=== PATIENT | female | born 1930 | race African-American/Black ===

== ENCOUNTER 2018-08-01 21:12 | Observation (INO) | payer OTHER ==
--- OUTSIDE RECORDS SUMMARY | 2018-08-01 21:14 | XMS REPORT | Continuity of Care Document ---
:1930 Author Organization Interface Problems Problem Status Onset Classification Date Comments Source Date Reported N64.4 - Active [facility] Medications Medication Details Route Status Patient Ordering Order Source Instructions Provider Date Allergies, Adverse Reactions, Alerts Substance Category Reaction Severity Reaction Status Date Comments Source type Reported penicillins Assertion Drug Active [facility] allergy 1 [facility] Women's Immunizations Immunization Date Given Site Status Last Updated Comments Source Results Order Results Value Reference Date Interpretation Comments Source Name Range Breast Breast - BREAST COMPLETE [facility]OMA US 12/22 - [facility] Complete Complete /2015 - [place] US [facility] US ULTRASOUND OF BOTH BREASTS: 12/23/2015 CLINICAL: N64.4 Mastodynia. Read by: Miguel Parkinson MD Dictated Date/time: 12/27/15 17:53 Electronically Signed by: Miguel Parkinson MD 12/27/15 17:53 FINAL REPORT No prior exams were available for comparison. Real-time ultrasound of both breasts was performed. The entire right and left breasts were evaluated including all four quadrants subareolar region, axilla, and axillary tail. There are no abnormal-appearing lymph nodes in both axilla. There is no complex cyst, suspicious mass, or abnormal echotexture. IMPRESSION: BENIGN There is no sonographic evidence of malignancy. A 1 year screening mammogram is recommended. Bilateral mammogram was done the same day. Please see separate report. Miguel Parkinson M.D. mt/:12/27/2015 17:53:27 Recharger: Allison Plunkett R.D.M.S, [facility] Women's Imaging This exam was dictated and interpreted by [id number] for [facility] Women' s Imaging. letter sent: Normal exam Ultrasound BI-RADS: 2 Benign Digital Digital - DIGITAL MAMMO DX HOMA MA 12/22 - [facility] Mammo DX Mammo DX /2015 - [place] Homa MA [place] MA BILATERAL DIGITAL DIAGNOSTIC MAMMOGRAM WITH CAD: 12/23/2015 CLINICAL: N64.4 Mastodynia. Read by: Miguel Parkinson MD Dictated Date/time: 12/23/15 11:18 Electronically Signed by: Miguel Parkinson MD 12/23/15 11:18 FINAL REPORT Additional History: Left breast pain x 3-4 months Current study was evaluated with a Computer Aided Detection (CAD) system. No prior exams were available for comparison. There are scattered fibroglandular densities in both breasts. There are benign scattered calcifications and densities in both breasts. No significant masses, calcifications, or other findings are seen in either breast. IMPRESSION: BENIGN There is no mammographic evidence of malignancy. A 1 year screening mammogram is recommended. There is also no sonographic evidence of malignancy (separate report). Given history of breast pain, clinical follow up and correlation are recommended. If breast pain continues to be a concern, MRI could be considered. Miguel Parkinson M.D. mt/:12/23/2015 11:18:25 Recharger: Merle Nolan [facility] Women's Imaging This exam was dictated and interpreted by [id number] for [facility] Women' s Imaging. letter sent: Normal exam Mammogram BI-RADS: 2 Benign Vital Signs Vital Sign Value Date Comments Source Encounters Location Location Encounter Encounter Reason Attending ADM AR Status Source Details Type Number For Provider Date Date Visit [facility] Outpt Diag [id number] Anali 12/22 12/23 [facility] Outpatient Services Donn [facility] Imaging - Women's [facility] Women's Procedures Procedure Code Date Perfomer Comments Source
--- OUTSIDE RECORDS SUMMARY | 2018-08-01 21:14 | XMS REPORT ---
:1930 [facility] Address [address] [place] [address] [address] [place] [address] Care Team Providers Name Role Phone UNKNOWN, REFFERING Primary Care Provider Unavailable NADEGE SALEH Unavailable Unavailable Problems This patient has no known problems. Allergies, Adverse Reactions, Alerts This patient has no known allergies or adverse reactions. Medications This patient has no known medications. Encounters Start End Encounter Admission Attending Care Care Encounter Date/Time Date/Time Type Type Clinicians Facility Department ID 2017-06-03 2017-06-03 Outpatient [facility] [id number] 19:44:00 19:44:00 NADEGE Results Test Description Test Time Test Comments Text Results Atomic Results Result Comments Lipid Profile 2017-06-03 20:58:00 Test Item Value Reference Range Comments Cholesterol (test code=CHOL) 193 mg/dL 0-200 Triglycerides (test code=TRIG) 61 mg/dL 9-200 HDL (test code=HDL) 100 mg/dL 50-60 Chol/HDL (test code=CHOLPHDL) 1.9 Ratio 0.0-4.4 LDL, Calculated (test 81 0-130 (NOTE)RISK OF HEART DISEASEPublished code=LDLC) by Filip[place] Heart AssociationAnalyte Optimal Boderline Increased RiskCHOL <200 200-239 >240TRIG <150 150-199 >200HDL Male: >60 <40HDL Female: >60 <50LDL <100 130-159 >160LDL NEAR OPTIMAL IS 100-129 VLDL (test code=VLDL) 12 mg/dL 5-40 LDL/HDL (test code=LDLPHDL) 1 CBC with [id number] 22:50:00 Test Item Value Reference Range Comments WBC (test code=WBC) 5.5 K/cumm 4.4-10.5 RBC (test code=RBC) 3.97 M/cumm 3.75-5.20 Hemoglobin (test code=HGB) 11.6 gm/dL 12.2-14.8 Hematocrit (test code=HCT) 38.1 % 36.5-44.4 MCV (test code=MCV) 96.1 fL 80-100 MCH (test code=MCH) 29.2 pg 27.0-32.5 MCHC (test code=MCHC) 30.3 g/dL 32.0-37.5 RDW (test code=RDW) 15.0 % 11.5-14.5 Platelet Count (test code=PLTCT) 272 K/cumm 140-440 MPV (test code=MPV) 10.5 fL Diff Method (test code=DIFFM) Auto Neutrophil (test code=NEUT) 48.7 % 36-70 Lymphocyte (test code=LYMPH) 34.5 % 12-44 Monocyte (test code=MONO) 6.7 % 0-11 Eosinophil (test code=EOS) 9.3 % 0-7 Basophil (test code=BASO) 0.7 % 0-2 Neutro Abs (test code=ANEUT) 2.7 K/cumm 1.6-7.4 Lymph Abs (test code=ALYMPH) 1.9 K/cumm 0.5-4.6 [place] Abs (test code=AMONO) 0.4 K/cumm 0.0-1.2 Eos Abs (test code=AEOS) 0.51 K/cumm 0.00-0.74 Baso Abs (test code=ABASO) 0.0 K/cumm 0.00-0.21 Lipid [id number] 22:31:00 Test Item Value Reference Range Comments Cholesterol (test 169 mg/dL 0-200 code=CHOL) Triglycerides (test 61 mg/dL 9-200 code=TRIG) HDL (test code=HDL) 87 mg/dL 50-60 Chol/HDL (test 1.9 Ratio 0.0-4.4 code=CHOLPHDL) LDL, Calculated (test 70 mg/dL 0-130 (NOTE)RISK OF HEART code=LDLC) DISEASEPublished by Filip[place] Heart AssociationAnalyte Optimal Boderline Increased RiskCHOL <200 200-239 >240TRIG <150 150-199 >200HDL Male: >60 <40HDL Female: >60 <50LDL <100 130-159 >160LDL NEAR OPTIMAL IS 100-129 VLDL (test code=VLDL) 12 mg/dL 5-40 LDL/HDL (test code=LDLPHDL) 1 Comprehensive Metabolic [id number] 22:31:00 Test Item Value Reference Range Comments Sodium (test code=NA) 141 mmol/L 135-145 Potassium (test code=K) 4.2 mmol/L 3.5-5.1 Chloride (test code=CL) 104 mmol/L 98-105 Carbon Dioxide (test 26 mmol/L 22-29 code=CO2) Glucose (test code=GLU) 87 mg/dL 70-115 Blood Urea Nitrogen (test 17 mg/dL 8-23 code=BUN) Creatinine (test 1.0 mg/dL 0.5-0.9 code=CREAT) Calcium (test code=CA) 9.2 mg/dL 8.3-10.5 Prot Total (test code=TP) 8.0 g/dL 6.4-8.3 Albumin (test code=ALB) 3.8 g/dL 3.5-5.2 A/G Ratio (test 0.9 Ratio code=AGRATIO) Globulin (test code=GLOB) 4.2 2.9-3.1 Bili Total (test 0.4 mg/dL 0.1-0.9 code=TBIL) Alk Phos (test 88 U/L 35-104 code=APHOS) AST (test code=AST) 29 U/L 1-32 ALT (test code=ALT) 21 U/L 1-33 BUN/Creatinine Ratio 17.0 (test code=BCRATIO) Anion Gap (test 11 mmol/L 7-16 code=AGAP) Estimated GFR (test 56 mL/min/1.73m2 eGFR (estimated Glomerular code=GFR) Filtration Rate) is an estimated value,calculated from the patient's serum creatinine using the MDRD equation.It is NOT the patient's actual GFR. The eGFR provides a more clinicallyuseful measure of kidney disease than serum creatinine alone.This calculation takes sex and race into account, if the informationis provided. If the race is not provided, and the patient isAfrican-Filipino, multiply by 1.212. If sex is not provided, and thepatient is female, multiply by 0.742. Results for patients <18 years ofage have not been validated by the MDRD study and should be interpretedwith caution.eGFR Result Interpretation:eGFR > or=60 is in the Normal RangeeGFR < 60 may mean kidney diseaseeGFR < 15 may mean kidney failureRanges recommended by the National Kidney Foundation,http://nkdep.nih .gov
[2018-08-01 21:57] LABS: Absolute Lymphocytes (CBC) 2.6 K/uL (0.7-4.9); Absolute Monocytes 0.8 K/uL (0.1-1.3); Absolute Neutrophil 2.8 K/uL (1.8-8.0); Basophils % 0.8 % (0-1.3); Eosinophils % 8.8 % (0-4.4); Hematocrit 36.9 % (36.0-45.0); Lymphocytes % 38.3 % (15.3-44.8); MPV 9.1 fL (7.6-11.3); Monocytes % 11.4 % (3.3-12.3); RBC Red Blood Cell Count 4.04 M/uL (3.86-4.86)
[2018-08-01 21:59] LABS: Protime INR 0.98
[2018-08-01 23:24] LABS: Albumin 3.1 g/dL (3.4-5.0); Bilirubin Direct 0.1 mg/dL (0-0.2); Bilirubin Total 0.3 mg/dL (0.2-1.0); Magnesium 1.9 mg/dL (1.8-2.4); Potassium 3.8 mmol/L (3.5-5.1); Protein, Total 8.8 g/dL (6.4-8.2); Troponin (Emerg Dept Use Only) 0.08 ng/mL (0.0-0.045)
--- NOTE | 2018-08-02 00:29 | ER ---
Nurse's Notes [facility] Name: Esthela Araiza Age: 88 yrs Sex: Female : 1930 Arrival Date: 08/01/2018 Time: 21:15 Bed 3 Private MD: Diagnosis: Chest pain, unspecified Presentation: 08/01 21:15 Presenting complaint: EMS states: Pt reports chest pain off and on for about 1 week. ed1 Transition of care: patient was not received from another setting of care. Onset of symptoms was July 25, 2018. Risk Assessment: Do you want to hurt yourself or someone else? Patient reports no desire to harm self or others. Initial Sepsis Screen: Does the patient meet any 2 criteria? No. Patient's initial sepsis screen is negative. Does the patient have a suspected source of infection? No. Patient's initial sepsis screen is negative. Care prior to arrival: Medication(s) given: ASA, 81 mg, x 4, Nitroglycerin, 0.4 mg SL x 1, IV initiated. 20 GA, in the right forearm. 21:15 Method Of Arrival: EMS: [facility] ed1 21:15 Acuity: LEXA 3 ed1 Triage Assessment: 21:17 General: Appears in no apparent distress. Behavior is calm, cooperative. Pain: Denies ed1 pain. EENT: No signs and/or symptoms were reported regarding the EENT system. Neuro: Level of Consciousness is awake, alert, obeys commands, Oriented to person, place, time, situation. 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 Respiratory: Airway is patent Respiratory effort is even, unlabored, Respiratory pattern is regular, symmetrical, Breath sounds are clear bilaterally. Denies cough, shortness of breath. GI: Patient currently denies diarrhea, nausea, vomiting. : No signs and/or symptoms were reported regarding the genitourinary system. Derm: Skin is intact, is healthy with good turgor, Skin is dry, Skin is normal, Skin temperature is warm. Musculoskeletal: Circulation, motion, and sensation intact. Historical: - Allergies: 21:17 PENICILLINS; ed1 - PMHx: 21:17 Hypertension; ed1 - PSHx: 21:17 Knee surgery; ed1 - Immunization history:: Adult Immunizations up to date, Flu vaccine is up to date. - Social history:: Smoking status: Patient/guardian denies using tobacco, Patient/guardian denies using alcohol, street drugs, The patient lives with family. - Ebola Screening: : Patient negative for fever greater than or equal to 101.5 degrees Fahrenheit, and additional compatible Ebola Virus Disease symptoms Patient denies exposure to infectious person Patient denies travel to an Ebola-affected area in the 21 days before illness onset No symptoms or risks identified at this time. - Family history:: not pertinent. Screenin:20 Abuse screen: Denies threats or abuse. Denies injuries from another. Nutritional ed1 screening: No deficits noted. Tuberculosis screening: No symptoms or risk factors identified. Fall Risk No fall in past 12 months (0 pts). No secondary diagnosis (0 pts). IV access (20 points). Ambulatory Aid- None/Bed Rest/Nurse Assist (0 pts). Gait- Normal/Bed Rest/Wheelchair (0 pts) Mental Status- Oriented to own ability (0 pts). Total Carr Fall Scale indicates No Risk (0-24 pts). Assessment: 21:20 General: See triage assessment. Pain: Denies pain. ed1 21:20 Pain: denies pain at this time Pain began about 1 week ago. ed1 22:19 Reassessment: Patient appears in no apparent distress at this time. Patient and/or ed1 family updated on plan of care and expected duration. Pain level reassessed. Patient is alert, oriented x 3, equal unlabored respirations, skin warm/dry/pink. Patient denies pain at this time. 23:22 Reassessment: Patient appears in no apparent distress at this time. No changes from ed1 previously documented assessment. Patient and/or family updated on plan of care and expected duration. Pain level reassessed. Patient is alert, oriented x 3, equal unlabored respirations, skin warm/dry/pink. Patient denies pain at this time. 08/02 00:24 Reassessment: Patient appears in no apparent distress at this time. No changes from ed1 previously documented assessment. Patient and/or family updated on plan of care and expected duration. Pain level reassessed. Patient is alert, oriented x 3, equal unlabored respirations, skin warm/dry/pink. Patient denies pain at this time. 01:37 Reassessment: Patient appears in no apparent distress at this time. No changes from ed1 previously documented assessment. Patient and/or family updated on plan of care and expected duration. Pain level reassessed. Patient is alert, oriented x 3, equal unlabored respirations, skin warm/dry/pink. Pt takes Lorazapam 0.5mg at home and was asking if she could have a dose here to help her sleep Patient denies pain at this time. Vital Signs: 08/01 21:17 BP 168 / 108; Pulse 85; Resp 17; Pulse Ox 98% on R/A; Weight 57.15 kg; Height 5 ft. 1 ed1 in. (154.94 cm); Pain 0/10; 22:19 BP 170 / 96; Pulse 78; Resp 17; Pulse Ox 99% on R/A; Pain 0/10; ed1 23:22 BP 162 / 91; Pulse 72; Resp 16; Pulse Ox 97% on R/A; Pain 0/10; ed1 08/02 00:24 BP 152 / 80; Pulse 73; Resp 16; Pulse Ox 95% on R/A; Pain 0/10; ed1 01:37 BP 183 / 86; Pulse 90; Resp 22; Temp 97.9(O); Pulse Ox 100% on R/A; Pain 0/10; ed1 02:20 BP 171 / 90; Pulse 75; Resp 14; Pulse Ox 100% on R/A; Pain 0/10; ed1 08/01 21:17 Body Mass Index 23.81 (57.15 kg, 154.94 cm) ed1 ED Course: 08/01 21:15 Patient arrived in ED. ed1 21:15 Helder Augustine MD is Attending Physician. ma2 21:16 Triage completed. ed1 21:17 Arm band placed on. ed1 21:20 Patient has correct armband on for positive identification. Placed in gown. Bed in low ed1 position. Call light in reach. Side rails up X2. monitoring analyst on. Pulse ox on. NIBP on. Warm blanket given. 21:20 Maintain EMS IV. Dressing intact. Good blood return noted. Site clean \T\ dry. Gauge \T\ ed 1 site: 20g right FA. Patient maintains SpO2 saturation greater than 95% on room air. 21:25 Aguilar, Shantal, RN is Primary Nurse. ed1 21:39 XRAY Chest (1 view) In Process Unspecified. EDMS 08/02 00:25 Attending Physician role handed off by Helder Augustine MD tw4 00:25 Mitchel Issa MD is Attending Physician. tw4 00:28 Helder Montague MD is Hospitalizing Provider. tw4 01:38 Awaiting bed assignment. ed1 02:20 No provider procedures requiring assistance completed. Patient admitted, IV remains in ed1 place. intact, No redness/swelling at site. Administered Medications: No medications were administered Outcome: 00:28 Decision to Hospitalize by Provider. tw4 03:22 Admitted to Tele accompanied by tech, family with patient, via wheelchair, room 428, ed1 with chart, Report called to WANDY Pérez 03:22 Condition: stable 03:22 Discharge instructions given to patient, Instructed on the need for admit, Demonstrated understanding of instructions. 03:23 Patient left the ED. ed1 Signatures: Dispatcher [employer] Shantal Mireles, RN RN ed1 Helder Augustine MD MD [facility] Mitchel Issa MD MD tw4
--- NOTE | 2018-08-02 00:29 | EDPHYS ---
Physician Documentation [facility] Name: Esthela Araiza Age: 88 yrs Sex: Female : 1930 Arrival Date: 08/01/2018 Time: 21:15 Bed 3 Private MD: ED Physician Mitchel Issa HPI: 08/01 21:58 This 88 yrs old Black Female presents to ER via EMS with complaints of Chest Pain. ma2 21:58 The patient or guardian reports chest pain that is located primarily in the substernal ma2 area. Onset: gradually, 1 hour(s) ago. The chest pain is described as burning. Severity of pain: At its worst the pain was moderate in the emergency department the pain is unchanged. The patient has not experienced similar symptoms in the past. Historical: - Allergies: 21:17 PENICILLINS; ed1 - PMHx: 21:17 Hypertension; ed1 - PSHx: 21:17 Knee surgery; ed1 - Immunization history:: Adult Immunizations up to date, Flu vaccine is up to date. - Social history:: Smoking status: Patient/guardian denies using tobacco, Patient/guardian denies using alcohol, street drugs, The patient lives with family. - Ebola Screening: : Patient negative for fever greater than or equal to 101.5 degrees Fahrenheit, and additional compatible Ebola Virus Disease symptoms Patient denies exposure to infectious person Patient denies travel to an Ebola-affected area in the 21 days before illness onset No symptoms or risks identified at this time. - Family history:: not pertinent. ROS: 21:58 Constitutional: Negative for fever, chills, and weight loss. ma2 21:58 Respiratory: Negative for shortness of breath, cough, wheezing, and pleuritic chest pain, Abdomen/GI: Negative for abdominal pain, nausea, diarrhea, and constipation, Neuro: Negative for headache, weakness, numbness, tingling, and seizure, Psych: Negative for depression, anxiety, suicide ideation, homicidal ideation, and hallucinations. 21:58 Cardiovascular: Positive for chest pain, Negative for orthopnea, palpitations, paroxysmal nocturnal dyspnea. 21:58 All other systems are negative. Exam: 21:58 Constitutional: This is a well developed, well nourished patient who is awake, alert, ma2 and in no acute distress. Head/Face: Normocephalic, atraumatic. Neck: Trachea midline, no thyromegaly or masses palpated, and no cervical lymphadenopathy. Supple, full range of motion without nuchal rigidity, or vertebral point tenderness. No Meningismus. Chest/axilla: Normal chest wall appearance and motion. Nontender with no deformity. No lesions are appreciated. Cardiovascular: Regular rate and rhythm with a normal S1 and S2. No gallops, murmurs, or rubs. Normal PMI, no JVD. No pulse deficits. Respiratory: Lungs have equal breath sounds bilaterally, clear to auscultation and percussion. No rales, rhonchi or wheezes noted. No increased work of breathing, no retractions or nasal flaring. Abdomen/GI: Soft, non-tender, with normal bowel sounds. No distension or tympany. No guarding or rebound. No evidence of tenderness throughout. MS/ Extremity: Pulses equal, no cyanosis. Neurovascular intact. Full, normal range of motion. Neuro: Awake and alert, GCS 15, oriented to person, place, time, and situation. Cranial nerves II-XII grossly intact. Motor strength 5/5 in all extremities. Sensory grossly intact. Cerebellar exam normal. Normal gait. Vital Signs: 21:17 BP 168 / 108; Pulse 85; Resp 17; Pulse Ox 98% on R/A; Weight 57.15 kg; Height 5 ft. 1 ed1 in. (154.94 cm); Pain 0/10; 22:19 BP 170 / 96; Pulse 78; Resp 17; Pulse Ox 99% on R/A; Pain 0/10; ed1 23:22 BP 162 / 91; Pulse 72; Resp 16; Pulse Ox 97% on R/A; Pain 0/10; ed1 08/02 00:24 BP 152 / 80; Pulse 73; Resp 16; Pulse Ox 95% on R/A; Pain 0/10; ed1 01:37 BP 183 / 86; Pulse 90; Resp 22; Temp 97.9(O); Pulse Ox 100% on R/A; Pain 0/10; ed1 02:20 BP 171 / 90; Pulse 75; Resp 14; Pulse Ox 100% on R/A; Pain 0/10; ed1 08/01 21:17 Body Mass Index 23.81 (57.15 kg, 154.94 cm) ed1 MDM: 08/01 21:15 Patient medically screened. ma2 21:58 Differential diagnosis: abnormal EKG, anxiety, coronary artery disease gastroesophageal ma2 reflux disease (GERD). 08/02 03:04 Data reviewed: vital signs, nurses notes. Data interpreted: Pulse oximetry: tw4 Interpretation: normal. Counseling: I had a detailed discussion with the patient and/or guardian regarding: the historical points, exam findings, and any diagnostic results supporting the discharge/admit diagnosis. 08/01 21:24 Order name: Basic Metabolic Panel; Complete Time: 00:09 [facility] 08/01 21:24 Order name: CBC with Diff; Complete Time: 22:12 [facility] 08/01 21:24 Order name: LFT's; Complete Time: 00:09 [facility] 08/01 21:24 Order name: Magnesium; Complete Time: 00:09 [facility] 08/01 21:24 Order name: NT PRO-BNP; Complete Time: 00:09 [facility] 08/01 21:24 Order name: PT-INR; Complete Time: 22:12 [facility] 08/01 21:24 Order name: Troponin (emerg Dept Use Only); Complete Time: 00:09 [facility] 08/01 21:24 Order name: XRAY Chest (1 view) [facility] 08/01 21:24 Order name: EKG; Complete Time: 21:25 [facility] 08/02 01:32 Order name: Lipid Profile [facility] 08/02 01:32 Order name: Lipid Profile [facility] 08/02 01:32 Order name: Troponin I [facility] 08/02 01:33 Order name: Troponin I [facility] 08/02 01:33 Order name: Echo with Doppler [facility] 08/01 21:24 Order name: Cardiac monitoring; Complete Time: 21:25 [facility] 08/01 21:24 Order name: EKG - Nurse/Tech; Complete Time: 21:25 [facility] 08/01 21:24 Order name: IV Saline Lock; Complete Time: : [facility] 08/01 21:24 Order name: Labs collected and sent; Complete Time: 21:54 [facility] 08/01 21:24 Order name: O2 Per Protocol; Complete Time: : [facility] 08/01 21:24 Order name: O2 Sat Monitoring; Complete Time: : [facility] 08/02 01:33 Order name: CONS Physician Consult [facility] 08/02 01:33 Order name: Heart Healthy [facility] 08/02 01:33 Order name: EKG Electrocardiogram [facility] 08/02 01:33 Order name: EKG Electrocardiogram [facility] 08/02 01:33 Order name: EKG Electrocardiogram [facility] Administered Medications: No medications were administered Disposition: 08/02/18 00:28 Hospitalization ordered by Helder Montague for Observation. Preliminary diagnosis is Chest pain, unspecified. - Bed requested for Telemetry/MedSurg (observation). - Status is Observation. ed1 - Condition is Stable. - Problem is new. - Symptoms have improved. UTI on Admission? No Signatures: Dispatcher [employer] EDWI Shantal Aguilar RN RN ed1 Yvonne Logan RN RN Helder Augustine MD MD ma2 Mitchel Issa MD MD tw4 Corrections: (The following items were deleted from the chart) 02:13 00:28 Hospitalization Ordered by Helder Montague MD for Observation. Preliminary cg diagnosis is Chest pain, unspecified. Bed requested for Telemetry/MedSurg (observation). Status is Observation. Condition is Stable. Problem is new. Symptoms have improved. UTI on Admission? No. tw4 03:23 02:13 08/02/2018 00:28 Hospitalization Ordered by Helder Montague MD for Observation. ed1 Preliminary diagnosis is Chest pain, unspecified. Bed requested for Telemetry/MedSurg (observation). Status is Observation. Condition is Stable. Problem is new. Symptoms have improved. UTI on Admission? No.
[2018-08-02] MEDS ORDERED: MORPHINE 4 MG/ML SYR IV PRN (01:29)
[2018-08-02] MEDS ORDERED: ACETAMINOPHEN 500 MG TAB PO PRN (01:29)
[2018-08-02] MEDS ORDERED: ALPRAZOLAM 0.25 MG TABLET PO PRN (01:29)
[2018-08-02 03:36] VITALS: O2SAT 100
[2018-08-02 04:43] VITALS: BMI 23.8
--- NOTE | 2018-08-02 06:56 | EKG ---
Test Date: 2018-08-01 Test Time: 21:14:35 [employer]: DESTINY MEASUREMENT RESULTS: Intervals: Rate: 84 [place]: 144 QRSD: 74 QT: 368 QTc: 434 [place]: P: 29 [place]: 144 QRS: 43 T: 32 INTERPRETIVE STATEMENTS: Normal sinus rhythm Nonspecific ST and T wave abnormality Abnormal ECG Compared to ECG 01/24/2003 13:54:00 Prolonged QT interval no longer present ST (T wave) deviation still present Electronically Signed On 08-02-18 06:54:42 COPY SUPERVISOR by Madhav La
--- NOTE | 2018-08-02 08:35 | RAD REPORT ---
EXAM DESCRIPTION: Rakesh Single View08/01/2018 9:41 pm CLINICAL HISTORY: Chest pain COMPARISON: none FINDINGS: The medial left base is hazy. The right lung appears clear of acute infiltrate. The heart is normal size IMPRESSION: The medial left base is hazy. PA and lateral chest series recommended
[2018-08-02] MEDS ORDERED: ASPIRIN EC 81 MG TAB PO SCH (09:00)
[2018-08-02] MEDS ORDERED: METOPROLOL TAR 50 MG TAB PO SCH (09:00)
[2018-08-02] MEDS ORDERED: ENOXAPARIN 30 MG/0.3 ML SQ SCH (09:00)
--- NOTE | 2018-08-02 09:33 | P.HP ---
Certification for Inpatient Patient admitted to: Observation With expected LOS: <2 Midnights Patient will require the following post-hospital care: None Practitioner: I am a practitioner with admitting privileges, knowledge of patient current condition, hospital course, and medical plan of care. Services: Services provided to patient in accordance with Admission requirements found in Title 42 Section 412.3 of the Code of Federal Regulations Patient History Date of Service: 08/02/18 Reason for admission: Chest pain rule out acute coronary syndrome History of Present Illness: Patient is an 88-year-old female who came to the hospital with chest discomfort. Pain was mainly in the sternal region with no radiation. Patient states the pain slowly went away. Patient did not have any shortness of breath or diaphoresis. Patient was brought into the hospital for further evaluation. Patient follows up with cardiology, Dr. Frias and has had prior workup which was unremarkable. This was over a year ago. Patient may need to follow up as an outpatient. Will consult Cardiology for further information. Allergies Penicillins Adverse Reaction (Verified 08/02/18 04:06) Anaphylaxis Home Medications: Amlodipine [Norvasc] 5 mg PO DAILY 08/02/18 Clopidogrel Bisulfate [Plavix] 75 mg PO DAILY 08/02/18 Isosorbide Mononitrate [Isosorbide Mononitrate ER] 30 mg PO DAILY 08/02/18 LORazepam [Ativan] 0.5 mg PO BEDTIME 08/02/18 Latanoprost/Pf [Latanoprost 0.005% Eye Drop] 7.5 ml OP 08/02/18 Mirtazapine 7.5 mg PO BEDTIME 08/02/18 Olopatadine HCl [Pazeo] 2.5 ml OP 08/02/18 Omeprazole 20 mg PO DAILY 08/02/18 Timolol 0.5% Opth [Timoptic 0.5% Opth*] 50 drops EACH EYE 08/02/18 - Past Medical/Surgical History Has patient received pneumonia vaccine in the past: Yes Diabetic: No -: HYPERTENSION -: FATTY LIVER -: KIDNEY CYST -: HYSTERECTOMY -: RIGHT KNEE REPLACEMENT - Family History Father History Unknown: Yes - Social History Smoking Status: Former smoker Alcohol use: No CD- Drugs: No Caffeine use: Yes Place of Residence: Home Review of Systems 10-point ROS is otherwise unremarkable Physical Examination - Vital Signs Temperature: 97.6 F Blood Pressure: 160/83 Pulse: 72 Respirations: 18 Pulse Ox (%): 97 - Physical Exam General: Alert, In no apparent distress, Oriented x3 HEENT: Atraumatic, PERRLA, Mucous membr. moist/pink, EOMI, Sclerae nonicteric Neck: Supple, 2+ carotid pulse no bruit, No LAD, Without JVD or thyroid abnormality Respiratory: Clear to auscultation bilaterally, Normal air movement Cardiovascular: Regular rate/rhythm, Normal S1 S2 Gastrointestinal: Normal bowel sounds, Soft and benign, Non-distended, No tenderness Musculoskeletal: No clubbing, No swelling, No tenderness Integumentary: No rashes Neurological: Normal gait, Normal speech, Normal strength at 5/5 x4 extr, Normal tone, Sensation intact, Cranial nerves 3-12 intact, Normal affect Lymphatics: No axilla or inguinal lymphadenopathy - Studies Laboratory Data (last 24 hrs) 08/01/18 22:53: Sodium 141, Potassium 3.8, BUN 28 H, Creatinine 1.37 H, Glucose 95, Magnesium 1.9, Total Bilirubin 0.3, AST 43 H, ALT 27, Alkaline Phosphatase 103 08/01/18 21:45: PT 11.6, INR 0.98 08/01/18 21:45: WBC 6.8, Hgb 12.2, Hct 36.9, Plt Count 241 Assessment & Plan - Problems (Diagnosis) (1) Chest pain, rule out acute myocardial infarction Current Visit: Yes Status: Acute - Plan 1. Serial troponins and EKG 2. Cardiology consultation 3. Echocardiogram and further testing as an outpatient 4. Anti-platelet therapy, anti coagulation, beta-cherie, statin, and O2 as needed 5. IV morphine for pain 6. lipid profile Discharge Plan: Home Plan to discharge in: 24 Hours - Advance Directives Does patient have a Living Will: No Does patient have a Durable POA for Healthcare: No - Code Status/Comfort Care Code Status Assessed: Yes Code Status: Full Code Critical Care: No Time Spent Managing PTS Care (In Minutes): 50
--- NOTE | 2018-08-02 11:21 | ECHO ---
HEIGHT: 5 ft 1 in WEIGHT: 126 lb 0 oz DATE OF STUDY: 08/02/[address]: Helder Montague MD 2-DIMENSIONAL: YES M.MODE: YES DOPPLER: YES COLOR FLOW: YES TDS: NO PORTABLE: NO DEFINITY: NO BUBBLE STUDY: NO DIAGNOSIS: CHEST PAIN CARDIAC HISTORY: CATHERIZATION: NO SURGERY: NO PROSTHETIC VALVE: NO PACEMAKER: NO MEASUREMENTS (cm) DIASTOLIC (NORMALS) SYSTOLIC (NORMALS) IVSd 0.9 (0.6-1.2) LA Diam 3.9 (1.9-4.0) LVEF 75% LVIDd 4.8 (3.5-5.7) LVIDs 2.7 (2.0-3.5) %FS 44% LVPWd 1.1 (0.6-1.2) Ao Diam 2.4 (2.0-3.7) 2 DIMENSIONAL ASSESSMENT: RIGHT ATRIUM: NORMAL LEFT ATRIUM: NORMAL RIGHT VENTRICLE: NORMAL LEFT VENTRICLE: NORMAL TRICUSPID VALVE: NORMAL MITRAL VALVE: NORMAL PULMONIC VALVE: NORMAL AORTIC VALVE: SCLEROSIS PERICARDIAL EFFUSION: NONE AORTIC ROOT: NORMAL LEFT VENTRICULAR WALL MOTION: NORMAL. DOPPLER/COLOR FLOW: MILD TRICUSPID REGURGITATION. COMMENTS: MILD TRICUSPID REGURGITATION- NORMAL RIGHT VENTRICULAR SYSTOLIC PRESSURE. AORTIC SCLEROSIS. NORMAL LEFT VENTRICULAR SIZE AND FUNCTION. TECHNOLOGIST: AYAN PEÑA
[2018-08-02 13:54] VITALS: BP 168/83; TEMP 97.4
--- NOTE | 2018-08-02 14:46 | EKG ---
Test Date: 2018-08-02 Test Time: 10:23:15 Analytical Consultant: LEISA MEASUREMENT RESULTS: Intervals: Rate: 67 AL: 148 QRSD: 84 QT: 410 QTc: 433 [place]: P: 45 AL: 148 QRS: 54 T: 66 INTERPRETIVE STATEMENTS: Normal sinus rhythm Normal ECG Compared to ECG 08/01/2018 21:14:35 ST (T wave) deviation no longer present Electronically Signed On 08-02-18 14:44:22 [employer] VICE PRESIDENT by Madhav La
== END 2018-08-02 14:06 | disposition home or self-care (01) ==
LOC: ER 21:12 → ERHOLD 08-02 01:34 → 4TH 08-02 03:05
PROVIDERS: ADMIT Hospitalist; ATTEND Hospitalist
DX: R07.9 Chest pain, unspecified (principal); I10 Essential (primary) hypertension; Z96.651 Presence of right artificial knee joint; Z88.0 Allergy status to penicillin
CPT/HCPCS: 93005 ×2; 93306; 85025; 80048; 36415; 83735; 85610; 80061; 80076; 84484 ×3; 83880; 71045; 99285; G0378 ×2; J1650